=== PATIENT | male | born 1960 | race Caucasian/White ===

== ENCOUNTER 2017-09-28 12:53 | Emergency (ER) | payer OTHER ==
[2017-09-28 13:02] VITALS: BP 120/78; PULSE 61; RESP 18; TEMP 98.6; O2SAT 94
--- NOTE | 2017-09-28 13:26 | EDPHY ---
H & P Time Seen by Provider: 09/28/17 13:14 HPI/ROS: CHIEF COMPLAINT: cough, tingling in fingertips HISTORY OF PRESENT ILLNESS: The patient is a 57 y/o male with a T1-L5 fusion complaining of cough and tingling in his extremities. He was lifting heavy objects during a move and noticed an increase in pain between his shoulder blades. He went to an ER on , 1 week ago, and was given steroids without any relief of his symptoms. Since the heavy lifting the tingling has increased in his fingertips and feet. He has also had a recent illness with a cough and green sputum. He is susceptible to pneumonia and is concerned that he has pneumonia now. Took Mucinex for his cold symptoms. Denies fever, shortness of breath, recent trauma or other pertinent symptoms. REVIEW OF SYSTEMS: Aside from elements discussed in the HPI, a comprehensive 10-point review of systems was reviewed and is negative. Past Medical/Surgical History: T1-L5 fusion, chronic pain Social History: Lives in [place], , former smoker Smoking Status: Former smoker Physical Exam: General Appearance: Well appearing, alert Eyes: Pupils equal and round, no conjunctival pallor or injection ENT, Mouth: Mucous membranes moist Neck: Normal inspection Respiratory: Lungs are clear to auscultation Cardiovascular: Regular rate and rhythm Gastrointestinal: Abdomen is soft and non-tender Neurological: A&O, nonfocal, motor 5/5, sensory intact to light touch Skin: Warm and dry, no rash Extremities: normal inspection Vascular: radial pulse 2+ Psychiatric: Mood and affect normal Constitutional: Initial Vital Signs Temperature (C) 37 C 09/28/17 12:57 Heart Rate 61 09/28/17 12:57 Respiratory Rate 18 09/28/17 12:57 Blood Pressure 120/78 09/28/17 12:57 O2 Sat (%) 94 09/28/17 12:57 O2 Delivery Mode Room Air Allergies/Adverse Reactions: No Known Allergies Allergy (Unverified 09/28/17 12:55) Home Medications: Medication Instructions Recorded Azithromycin [Zithromax] 250 mg PO DAILY #6 tab 09/28/17 Proair Hfa 09/28/17 Wellbutrin Sr 09/28/17 Xanax 09/28/17 morphINE IR 09/28/17 Medical Decision Making - Diagnostics Imaging Results: Imaging Impressions Chest X-Ray 09/28/17 13:29 Impression: No evidence for acute cardiopulmonary abnormality. Chronic findings , as above. Imaging: I viewed and interpreted images myself ED Course/Re-evaluation: The patient is a 57 y/o male with a T1-L5 fusion, presenting with subjective decrease in sensation to his fingertips and feet. I do not feel that neuroimaging is indicated today. Pt concurs. Encourage pt to f/u with his spinal specialist. He has also had a recent cold associated with a cough and green sputum. His physical exam is normal. Chest x-ray ordered to r/o pneumonia. 1343: Chest x-ray reviewed by me reveals no acute disease. 1344: Reassessed patient and discussed imaging findings. Symptoms are consistent with acute bronchitis. Prescribed Azithromycin if his symptoms worsen. Return precautions provided; patient is comfortable with this plan. Differential Diagnosis: includes though not limited to pneumonia, URI, neurovascular compromise Departure - Departure Disposition: Home, Routine, Self-Care Clinical Impression: Bronchitis Condition: Good Instructions: Azithromycin (By mouth), Acute Bronchitis (ED) Additional Instructions: Drink plenty of fluids. Take Azithromycin if your symptoms worsen. Follow up with your primary care provider in the next week for unimproved symptoms. Referrals: Christiano Salazar MD [Medical Doctor] - As per Instructions Prescriptions: Azithromycin [Zithromax] 250 mg PO DAILY #6 tab Report Scribed for: Rosey Dominguez Report Scribed by: Mayuri Valdez Date of Report: 09/28/17 Time of Report: 13:18 Physician Review and Approval Statement: 09/28/17 13:18 Portions of this note were transcribed by a medical transcription editor. I personally performed a history, physical exam, medical decision making, and confirmed accuracy of information the transcribed note.
== END 2017-09-28 14:00 | disposition home or self-care (01) ==
DX: J20.9 Acute bronchitis, unspecified (principal); Z87.891 Personal history of nicotine dependence